=== PATIENT | female | born 1930 | race Caucasian/White ===

== ENCOUNTER 2018-05-13 23:18 | Inpatient (IN) | payer OTHER, MEDICARE ==
[~2018-05-13] VITALS: Ht 167.6 cm; Wt 99.5 kg
[~2018-05-13 23:18] MED LIST: ALLOPURINOL100 MG PO; APAP PO; ASPIR 8181 MG PO; BUPROPION XL150 MG PO; DILTIAZEM HYDR180 M1 PO; FUROSEMIDE80 MG PO; GABAPENTIN600 MG PO; METAXALONE800 MG PO; OMEPRAZOLE20 MG PO; OXYCOD PO; POTASSIUM CHLO20 ME1 PO; SIMVASTATIN20 MG PO; SPIRIVA 18 MCG18 MCG INH; WARFARIN SODIUM6 MG PO
--- NOTE | 2018-05-14 00:23 | ED GENERAL ADULT ---
See Addendum History of Present Illness General Chief Complaint: Lower Extremity Problems Stated Complaint: BIBA ?CELLULITIS LLEXT Source: patient Exam Limitations: no limitations Vital Signs & Intake/Output Vital Signs & Intake/Output Vital Signs Date Time Temp Pulse Resp B/P B/P Pulse O2 O2 Flow FiO2 Mean Ox Delivery Rate 05/14 0144 99.3 103 18 121/60 100 Room Air 05/13 2355 Room Air 05/13 2329 99.7 93 18 156/72 94 Room Air Allergies Coded Allergies: MDX - Dabigatran (From PRADAXA) (UNKNOWN 08/02/13) MDX - Latex (LATEX) (IRVIN 11/29/12) Reconcile Medications Allopurinol 100 MG TAB 1 TAB PO DAILY GOUT (Reported) Aspirin (Ecotrin) 81 MG TABLET.DR 1 TAB PO DAILY HEART HEALTH (Reported) BUPROPION HCL (Bupropion XL) 150 MG TAB.ER.24H 150 MG PO DAILY DEPRESSION ( Reported) DILTIAZEM HCL (Diltiazem 24HR Cd) 180 MG CER 180 MG PO DAILY BLOOD PRESSURE ( Reported) Furosemide 80 MG TAB 80 MG PO DAILY CHF (Reported) Gabapentin 600 MG TABLET 600 MG PO DAILY PAIN (Reported) Metaxalone 800 MG TABLET 800 MG PO Q6 PRN PAIN (Reported) Omeprazole 20 MG CAPSULE.DR 20 MG PO DAILY GERD (Reported) [OXYCOD/APAP TAB 7.5] 1 TAB PO PRN PAIN (Reported) Potassium Chloride 20 MEQ TABLET.ER 20 MEQ PO DAILY LOW POTASSIUM (Reported) Simvastatin (Zocor) 20 MG TAB 1 TAB PO QPM CHOLESTEROL (Reported) Tiotropium [place] (Spiriva) 18 MCG CAP.W.DEV 1 CAP INH DAILY COPD (Reported) Warfarin Sodium 6 MG TABLET 6 MG PO DAILY AFIB (Reported) Triage Note: TRIAGE: BIBA FROM HOME REPORTING L LOWER EXT SWELLING. +SWELLING TO L FOOT, ANKLE AND CALF/ GAUTHIER. VERY HOT TO TOUCH, REDNESS NOTED, SKIN TIGHT. REPORTS "CAN'T EVEN WALK IT HURTS SO MUCH." DENIES INJURIES. Triage Nurses Notes Reviewed? yes Onset: Gradual Duration: day(s): Timing: constant HPI: 87-year-old female with a history of A. fib, CHF, hyperlipidemia, hypertension presenting with left foot/ankle pain/swelling since yesterday. Reports initially started in the foot and has since progressed to the ankle. Has tried ice and oxycodone without relief. Denies fevers, nausea, vomiting, CP, SOB. Patient is largely nonambulatory and wheelchair-bound, but she notes that she is able to stand and pivot using her walker to transfer from her wheelchair to the toilet. She has been unable to bear weight for transferring since the onset of the above symptoms. Of note she struck her left gauthier on her 's walker 3 days ago. (Alise Colunga) Past History Travel History Traveled to [place] past 21 day No Medical History Any Pertinent Medical History? see below for history Cardiovascular: AFIB, CHF, hypertension, hyperlipidemia Surgical History Surgical History: non-contributory Psychosocial History What is your primary language Latvian Tobacco Use: Never used Family History Hx Contributory? No (Alise Colunga) Review of Systems Review of Systems Constitutional: Reports: no symptoms. EENTM: Reports: no symptoms. Respiratory: Reports: no symptoms. Cardiovascular: Reports: no symptoms. GI: Reports: no symptoms. Genitourinary: Reports: no symptoms. Musculoskeletal: Reports: see HPI. Skin: Reports: see HPI. Neurological/Psychological: Reports: no symptoms. Hematologic/Endocrine: Reports: no symptoms. Immunologic/Allergic: Reports: no symptoms. All Other Systems: Reviewed and Negative (Alise Colunga) Physical Exam Physical Exam General Appearance: well developed/nourished, no apparent distress, alert, awake Comments: Gen.: Well-nourished, well-developed, no acute distress. Head: Normocephalic, atraumatic. Eyes: Normal inspection bilaterally Ears: Normal inspection bilaterally Nose: Normal inspection Neck: Normal inspection Lungs: clear to auscultation bilaterally, normnal breath sounds Heart: regular rate and rhythm Abdomen: soft and non-tender EXTREMITIES: left lower extremity Inspection: 2+ pitting edema and erythema to the foot and ankle Palpation: diffuse tenderness and increased warmth to the foot/ankle/distal leg, calf is supple but tender ROM: Patient is unable to range the ankle joint Sensation: intact Motor strength: Unable to assess motor strength Pulse: Dorsalis pedis and posterior tibialis pulses are both audible with Doppler Neurologic: alert and oriented x3 Skin: warm and dry Psychiatric: Normal mood and affect, no apparent delusions or hallucinations, behavior appropriate Core Measures ACS in differential dx? No CVA/TIA Diagnosis: No Sepsis Present: No Sepsis Focused Exam Completed? No (Alise Colunga) Progress Differential Diagnoses I considered the following diagnoses in my evaluation of the patient: [ Cellulitis versus abscess versus sepsis versus DVT] Plan of Care: Orders Procedure Date/time Status BLOOD CULTURE 05/14 7 Active LACTIC ACID 05/14 7 Complete D-DIMER 05/14 7 Complete COMPREHENSIVE METABOLIC PANEL 05/14 7 Complete CBC WITHOUT DIFFERENTIAL 05/14 7 Complete Current Medications Sig/Anuj Start time Last Medication Dose Stop Time Status Admin Vancomycin HCl 1,000 MG Q12 05/14 1230 UNir Sodium Chloride 250 ML (Normal Saline 0.9%) Allopurinol 100 MG DAILY 05/14 900 UNVr (Zyloprim) Atorvastatin Calcium 10 MG DAILY 05/14 900 UNVr (Lipitor) Bupropion HCl 150 MG DAILY 05/14 900 UNVr (Wellbutrin XL) Diltiazem HCl 180 MG DAILY 05/14 900 UNVr (Cardizem) Furosemide 80 MG DAILY 05/14 900 UNVr (Lasix) Gabapentin 600 MG DAILY 05/14 900 UNVr (Neurontin) Potassium Chloride 20 MEQ DAILY 05/14 900 UNVr (K-Dur) Tiotropium Cayuga 1 PUF DAILY 05/14 900 UNVr (Spiriva) Warfarin Sodium 6 MG DAILY 05/14 900 UNVr (Coumadin) Laboratory Tests 05/14/18 0018: Anion Gap 11, Estimated GFR > 60, BUN/Creatinine Ratio 31.4 H, Glucose 130 H, Lactic Acid 0.9, Calcium 9.2, Total Bilirubin 0.5, AST 18, ALT 18, Alkaline Phosphatase 83, Total Protein 6.7, Albumin 3.8, Globulin 2.9, Albumin/Globulin Ratio 1.3, D-Dimer High Sensitivty 310 H, CBC w Diff NO MAN DIFF REQ, RBC 4.68, MCV 89.6, MCH 30.0, MCHC 33.5, RDW 17.3 H, MPV 9.8, Gran % 80.2 H, Lymphocytes % 8.8 L, Monocytes % 9.7 H, Eosinophils % 1.0, Basophils % 0.3, Absolute Granulocytes 6.0, Absolute Lymphocytes 0.7 L, Absolute Monocytes 0.7 H, Absolute Eosinophils 0.1, Absolute Basophils 0 Microbiology 05/14 18 BLOOD: Blood Culture - RECD 05/14 17 BLOOD: Blood Culture - CAN Cancelled: QNS CALLED LILA 05/14 TO REDRAW.GH.. Tib/fib XR IMPRESSION: Status post total left knee arthroplasty without evidence of periprosthetic fracture. 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 Labs are unremarkable with normal white blood cell. Discussed with the hospitalist and patient does not meet admission criteria at this time as she is not showing any systemic symptoms and has normal labs. Will hold overnight in the emergency department for ultrasound in the morning to rule out DVT and case management consult to ensure safe discharge home. We will continue antibiotics scheduled in the meantime. Signed out to Dr. Scales. Initial ED EKG: none (Alise Colunga) Departure Departure Disposition: STILL A PATIENT Condition: Stable Clinical Impression Primary Impression: Cellulitis Referrals: Anthony CISNEROS,Iker Brand (PCP/Family) Departure Forms: Customer Survey General Discharge Information (Alise Colunga) PA/LYMPHEDEMA THERAPIST Co-Sign Statement Statement: ED Attending supervision documentation- [] I saw and evaluated the patient. I have also reviewed all the pertinent lab results and diagnostic results. I agree with the findings and the plan of care as documented in the PA's/LYMPHEDEMA THERAPIST's documentation. [x] I have reviewed the ED Record and agree with the PA's/LYMPHEDEMA THERAPIST's documentation. [] Additions or exceptions (if any) to the PAs/LYMPHEDEMA THERAPIST's note and plan are summarized below: [] (Yordy CISNEROS,Erik Murray) Critical Care Note Critical Care Note Critical Care Time: non-applicable (Alise Colunga)
[2018-05-14 00:58] LABS: ABSOLUTE BASOPHIL COUNT 0 /CUMM (0.0-0.2); ABSOLUTE EOSINOPHIL COUNT 0.1 /CUMM (0.0-0.7); ABSOLUTE LYMPH COUNT 0.7 /CUMM (1.2-3.4); ABSOLUTE MONOCYTE COUNT 0.7 /CUMM (0.10-0.60); BASOPHIL % 0.3 % (0.0-2.0); GRANULOCYTE % 80.2 % (42.2-75.2); HEMATOCRIT 41.9 % (37-47); MEAN CORPUSCULAR HGB CONC 33.5 G/DL (33.0-37.0); MEAN CORPUSCULAR VOLUME 89.6 FL (81.0-99.0); MEAN PLATELET VOLUME 9.8 FL (7.4-10.4); PLATELET COUNT 174 /CUMM (130-400); RBC DISTRIBUTION WIDTH 17.3 % (11.5-14.5); RED BLOOD CELL CT 4.68 /CUMM (4.20-5.40); WHITE BLOOD CELL COUNT 7.5 /CUMM (4.8-10.8)
--- NOTE | 2018-05-14 01:28 | RADIOLOGY REPORT ---
EXAMINATION: XR TIBIA AND FIBULA, LEFT CLINICAL INFORMATION: Concern for fracture. COMPARISON: Right knee radiographs 10/30/2014 TECHNIQUE: AP and lateral views of the left tibia and fibula were obtained. FINDINGS: Again seen are changes related to total left knee arthroplasty. Prosthetic components appear intact without evidence of malalignment. No evidence of acute fracture or traumatic dislocation. In the distal tibial shaft, there is a peripherally sclerotic, centrally mixed density lesion, with fairly circumscribed borders on the lateral view. Findings are thought to reflect sequela of bone infarct. Vascular calcifications are seen. Diffuse edema of the soft tissues of the lower leg are noted. There is diffuse osteopenia. IMPRESSION: Status post total left knee arthroplasty without evidence of periprosthetic fracture. 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
[2018-05-14] MEDS ORDERED: CLOTRIMAZOLE-BE15 GM TOP (08:14)
[2018-05-14] MEDS ORDERED: GABAPENTIN600 M1 PO (08:15)
[2018-05-14] MEDS ORDERED: ALIGN4 M1 PO (08:16)
[2018-05-14] MEDS ORDERED: SENNA8.6 M3 PO (08:17)
[2018-05-14] MEDS ORDERED: ISOSORBIDE MONO60 M1 PO (08:18)
[2018-05-14] MEDS ORDERED: MELATONIN5 M7 PO (08:18)
--- NOTE | 2018-05-14 10:03 | ULTRASOUND REPORT ---
EXAMINATION: LEFT LOWER EXTREMITY VENOUS DOPPLER ULTRASOUND CLINICAL INFORMATION: Left leg pain and swelling. VTE suspected. Rule out DVT. COMPARISON: None. TECHNIQUE: Doppler spectral analysis and color flow Doppler imaging was performed of the left lower extremity. Compression and augmentation maneuvers were performed. FINDINGS: The left common femoral vein, greater saphenous vein takeoff, femoral vein, and popliteal vein are normally compressible with normal augmentation responses and phasic changes seen with Doppler imaging. The midcalf posterior tibial veins are patent as well. The peroneal veins are not seen. There is a 1.9 x 0.4 x 1.1 cm popliteal cyst. IMPRESSION: 1. No evidence of deep venous thrombosis in the left lower extremity. However, the peroneal veins in the calf are not visualized. Depending on clinical circumstances, repeat DVT study in 7-10 days can be performed to exclude proximal clot propagation from a nonvisualized calf vein. 2. Small popliteal cyst.
--- NOTE | 2018-05-14 14:28 | Cons- Orthopedic ---
General Information and HPI Consulting Request Date of Consult: 05/14/18 Requested By: Kayli De La Cruz MD History of Present Illness: 87-year-old female with left lower extremity pain and swelling for the past 3 days. Patient is wheelchair-bound. She states left lower extremity hit her husbands walker 3 days ago. denies any falls out of chair or major trauma. patient is on coumadin for a fib. did not note any abrasions of left lower extremity. rates pain as a 10. x-rays taken of tib/fib and show no fracture/ dislocation. there is an incidental finding of a bone infarct. Allergies/Medications Allergies: Coded Allergies: dabigatran etexilate (From PRADAXA) (UNKNOWN 05/14/18) latex (IRVIN 05/14/18) Home Med List: Bifidobacterium Infantis (Align) 4 MG (1 BILLION CELL) CAPSULE 1 CAP PO DAILY GI (Reported) BUPROPION HCL (Bupropion XL) 150 MG TAB.ER.24H 150 MG PO DAILY DEPRESSION ( Reported) Clotrimazole/Betamethasone Dip (Clotrimazole-Betamethasone Crm) 1 %-0.05 % CREAM..G. 1 ESPERANZA TOP BID UNKNOWN (Reported) apply to affected area(s) DILTIAZEM HCL (Diltiazem 24HR Cd) 180 MG CER 180 MG PO DAILY BLOOD PRESSURE ( Reported) Furosemide 80 MG TAB 80 MG PO DAILY CHF (Reported) Gabapentin 600 MG TABLET 600 MG PO DAILY PAIN (Reported) Gabapentin 600 MG TABLET 2 TAB PO QPM PAIN (Reported) Isosorbide Mononitrate (Isosorbide Mononitrate ER) 60 MG TAB.ER.24H 1 TAB PO DAILY HEART (Reported) Melatonin 5 MG TABLET 1 TAB PO QPM SLEEP (Reported) Sennosides (Senna) 8.6 MG TABLET 1 TAB PO QPM GI (Reported) Simvastatin (Zocor) 20 MG TAB 1 TAB PO QPM CHOLESTEROL (Reported) Warfarin Sodium 6 MG TABLET 6 MG PO DAILY AFIB (Reported) Past History Medical History Blood Transfusion Hx: No Neurological: NONE EENT: hearing loss Cardiovascular: AFIB, CHF, hypertension, hyperlipidemia Respiratory: NONE Gastrointestinal: NONE Hepatic: NONE Renal: NONE Musculoskeletal: NONE Psychiatric: NONE Endocrine: NONE Blood Disorders: NONE Cancer(s): NONE ROOFING TECHNICIAN/Reproductive: NONE Surgical History Pertinent Surgical History: non-contributory Psychosocial History Where Do You Live? Home Services at Home: None Smoking Status: Former Smoker Review of Systems Review of Systems: negative Exam & Diagnostic Data Vital Signs and I&O Vital Signs Date Time Temp Pulse Resp B/P B/P Pulse O2 O2 Flow FiO2 Mean Ox Delivery Rate 05/14 1243 98.0 62 16 138/60 93 Room Air 05/14 1005 98.2 79 14 119/72 92 Room Air 05/14 0656 99.9 88 18 145/67 94 Room Air 05/14 0423 92 20 122/66 93 Room Air 05/14 0144 99.3 103 18 121/60 100 Room Air 05/13 2355 Room Air 05/13 2329 99.7 93 18 156/72 94 Room Air Intake & Output 05/14 1600 05/14 0800 05/14 0000 05/13 1600 05/13 0800 05/13 0000 Intake Total Output Total 100 Balance -100 Output, Urine 100 Patient 215 lb Weight Weight Reported by Patient Measurement Method Physical Exam: The left lower extremity is tender to touch. there is global erythema of left lower extremity. no obvious abrasions or skin breakdown. left lower extremity is n/v intact. she is able to move left ankle with rom 0-45 degrees. no significant motor weakness. the calf is supple and soft. x-rays negative for fracture or dislocation. there is an incidental finding of a bone infarct. patient is afebrile with a normal white count. Assessment/Plan Assessment/Plan left lower extremity contusion with hematoma d/t coumadin use -elevate left lower extremity -ice left lower extremity -f/u with orthopedics prn Consult Acknowledgment - Thank you for your consult request.
[2018-05-14 14:37] VITALS: BP 119/50
--- NOTE | 2018-05-14 14:58 | History & Physical ---
See Addendum General Information and HPI MD Statement: I have seen and personally examined ARSLAN LEONARD and documented this H&P. Source of Information: patient Exam Limitations: no limitations History of Present Illness: The patient is a 87 year old F with a PMH of CHF, AF, HL, HNT who presented to the ER with a stated chief complaint of swelling, warmth, and redness of the right LE that occurred over the weekend. She reports feeling some cramps in the top of the foot on Monday night then Monday the top of the foot and eventually the ankle began to swell and became very painful. She is wheelchair bound due to a fall and back injury 4 years ago, she transfers from the to the commode using a walker ortherwise does not use her legs for mobility. She denies any recent falls but does report striking her left gauthier against her husbands walker on night. It became swollen and tender but appears to be healing now. The patient denies fever/chills, chest pain, SOB, cough. Allergies/Medications Allergies: Coded Allergies: dabigatran etexilate (From PRADAXA) (UNKNOWN 05/14/18) latex (IRVIN 05/14/18) Home Med list Bifidobacterium Infantis (Align) 4 MG (1 BILLION CELL) CAPSULE 1 CAP PO DAILY GI (Reported) BUPROPION HCL (Bupropion XL) 150 MG TAB.ER.24H 150 MG PO DAILY DEPRESSION ( Reported) Clotrimazole/Betamethasone Dip (Clotrimazole-Betamethasone Crm) 1 %-0.05 % CREAM..G. 1 ESPERANZA TOP BID UNKNOWN (Reported) apply to affected area(s) DILTIAZEM HCL (Diltiazem 24HR Cd) 180 MG CER 180 MG PO DAILY BLOOD PRESSURE ( Reported) Furosemide 80 MG TAB 80 MG PO DAILY CHF (Reported) Gabapentin 600 MG TABLET 600 MG PO DAILY PAIN (Reported) Gabapentin 600 MG TABLET 2 TAB PO QPM PAIN (Reported) Isosorbide Mononitrate (Isosorbide Mononitrate ER) 60 MG TAB.ER.24H 1 TAB PO DAILY HEART (Reported) Melatonin 5 MG TABLET 1 TAB PO QPM SLEEP (Reported) Sennosides (Senna) 8.6 MG TABLET 1 TAB PO QPM GI (Reported) Simvastatin (Zocor) 20 MG TAB 1 TAB PO QPM CHOLESTEROL (Reported) Warfarin Sodium 6 MG TABLET 6 MG PO DAILY AFIB (Reported) Compliance With Home Meds: GOOD Past History Travel History Traveled to [place] past 21 day No Medical History Neurological: CVA, seizure Cardiovascular: AFIB, CHF, hypertension, hyperlipidemia, myocardial infarction Respiratory: COPD Musculoskeletal: falls, chronic right leg/hip pain Isolation History: Standard Surgical History Surgical History: non-contributory Past Family/Social History Functional Ability ADLs Needs Assist: dressing, toileting, bathing. Ambulation: non-ambulatory IADLs Independent: finances, food prep, telephone, medication admin. Unknown: shopping, housework, transportation. Review of Systems Review of Systems Constitutional: Reports: see HPI. Cardiovascular: Reports: no symptoms. Respiratory: Reports: no symptoms. GI: Reports: no symptoms. Genitourinary: Reports: no symptoms. Musculoskeletal: Reports: see HPI, back pain. Neurological/Psychological: Reports: no symptoms. Hematologic/Endocrine: Reports: no symptoms. Immunologic/Allergic: Reports: no symptoms. All Other Systems: Reviewed and Negative Exam & Diagnostic Data Last 24 Hrs of Vital Signs/I&O Vital Signs Date Time Temp Pulse Resp B/P B/P Pulse O2 O2 Flow FiO2 Mean Ox Delivery Rate 05/14 1437 119/50 05/14 1243 98.0 62 16 138/60 93 Room Air 05/14 1005 98.2 79 14 119/72 92 Room Air 05/14 0656 99.9 88 18 145/67 94 Room Air 05/14 0423 92 20 122/66 93 Room Air 05/14 0144 99.3 103 18 121/60 100 Room Air 05/13 2355 Room Air 05/13 2329 99.7 93 18 156/72 94 Room Air Intake & Output 05/14 1600 05/14 0800 05/14 0000 Intake Total 350 Output Total 100 Balance 250 Intake, Oral 350 Output, Urine 100 Patient 97.522 kg Weight Weight Reported by Patient Measurement Method Physical Exam General Appearance Alert, Oriented X3, Cooperative, Mild Distress Skin No Rashes, LLE erythema and warmth Skin Temp/Moisture Exam: Warm/Dry HEENT Atraumatic Cardiovascular Regular Rate, No Murmurs Lungs Normal Air Movement, expiratory wheeze Abdomen Normal Bowel Sounds, Soft, No Tenderness Neurological Normal Speech, Normal Tone, Sensation Intact Extremities tenderness, swelling, +3 edema LLE Last 24 Hrs of Labs/Krystian: Laboratory Tests 05/14/18 1435: PT Pending, INR Pending 05/14/18 0307: Lactic Acid Cancelled 05/14/18 0018: Anion Gap 11, Estimated GFR > 60, BUN/Creatinine Ratio 31.4 H, Glucose 130 H, Lactic Acid 0.9, Calcium 9.2, Total Bilirubin 0.5, AST 18, ALT 18, Alkaline Phosphatase 83, Total Protein 6.7, Albumin 3.8, Globulin 2.9, Albumin/Globulin Ratio 1.3, D-Dimer High Sensitivty 310 H, CBC w Diff NO MAN DIFF REQ, RBC 4.68, MCV 89.6, MCH 30.0, MCHC 33.5, RDW 17.3 H, MPV 9.8, Gran % 80.2 H, Lymphocytes % 8.8 L, Monocytes % 9.7 H, Eosinophils % 1.0, Basophils % 0.3, Absolute Granulocytes 6.0, Absolute Lymphocytes 0.7 L, Absolute Monocytes 0.7 H, Absolute Eosinophils 0.1, Absolute Basophils 0 Microbiology 05/14 1300 URINE ROUT: Urine Culture - ORD 05/14 18 BLOOD: Blood Culture - RECD 05/14 17 BLOOD: Blood Culture - CAN Cancelled: QNS CALLED LILA 0050 05/14 TO REDRAW.GH.. Assessment/Plan Assessment: 87 year old F with a PMH of CHF, AF, HL, HNT who presented to the ER with a chief complaint of swelling, warmth, and redness of the right LE that started Monday night and worsened over the weekend. She denied any falls or traumatic injury to the extremity. She did report striking her left gauthier against her husbands walker on night resulting in a mild contusion. She is wheelchair bound due to a fall and back injury 4 years ago. Problem List: 1. Cellulitis: No leukocytosis, 1G vancomycin given in ER, US ruled out DVT of LLE, tib/fib XR showed possible infarct involving distal tibal shaft - blood culture results pending - D/C vancomycin, started ceflazolin IVPB 1 G Q8H - MRI w/wo contrast of left extremity pending 2. A-fib/CHF/HTN - Continue diltiazem 180mg PO daily - Continue coumadin pending MRI and INR results - Continue Isosorbide 60mg PO daily - Continue Lasix 80mg PO daily - Conintue 20mEq PO potassium daily 3. Hyperlipemia - Continue Atorvastatin 10mg PO daily 4. Chronic Back and RLE Pain - Continue home pain regimen, 7.5mg oxycodone TID PRN 5. Mobility impaired - PT eval and treat - maintain fall risk and assist with transfers 6. DVT prophylaxis - Continue coumadin 7. Nurtition - Heart health diet 9. Code Status - DNR/DNI As Ranked By This Provider Problem List: 1. Cellulitis 2. A-fib 3. CHF (congestive heart failure) 4. Hypertension 5. Hyperlipemia 6. Mobility impaired Core Measures/Misc (05/07) Acute Coronary Syndrome ACS Diagnosis: No Congestive Heart Failure Congestive Heart Failure Diagnosis No Cerebrovascular Accident CVA/TIA Diagnosis: No VTE (View Protocol) VTE Risk Factors Immobility No Mechanical VTE Prophylaxis d/t Other (coumadin) No VTE Pharm Prophylaxis d/t NA PharmProphylax ordered Sepsis (View protocol) Sepsis Present: No If YES complete Sepsis Event Note If YES complete Sepsis Event Note Resident Review Statement Resident Statement: examined this patient, reviewed EMR data (avail), discussed with nursing
[2018-05-14 17:11] LABS: PT 25.7 SEC (9.4-12.5)
[2018-05-14 21:08] VITALS: BP 132/59
[2018-05-15 06:58] VITALS: BP 128/65
[2018-05-15 08:15] LABS: PT 26.5 SEC (9.4-12.5)
[2018-05-15 08:25] LABS: ABSOLUTE BASOPHIL COUNT 0 /CUMM (0.0-0.2); ABSOLUTE EOSINOPHIL COUNT 0 /CUMM (0.0-0.7); ABSOLUTE GRANULOCYTE CT 4.2 /CUMM (1.4-6.5); ABSOLUTE LYMPH COUNT 0.8 /CUMM (1.2-3.4); ABSOLUTE MONOCYTE COUNT 0.7 /CUMM (0.10-0.60); BASOPHIL % 0.3 % (0.0-2.0); EOSINOPHIL % 0.6 % (0-5); GRANULOCYTE % 72.9 % (42.2-75.2); MEAN CORPUSCULAR HGB 29.7 PG (27.0-31.0); MEAN CORPUSCULAR HGB CONC 33.4 G/DL (33.0-37.0); MEAN CORPUSCULAR VOLUME 88.9 FL (81.0-99.0); MEAN PLATELET VOLUME 9.6 FL (7.4-10.4); PLATELET COUNT 160 /CUMM (130-400); RBC DISTRIBUTION WIDTH 17.2 % (11.5-14.5); RED BLOOD CELL CT 4.61 /CUMM (4.20-5.40); WHITE BLOOD CELL COUNT 5.8 /CUMM (4.8-10.8)
--- NOTE | 2018-05-15 08:39 | PN- Gen Med ---
See Addendum Assessment/Plan Medical Assessment: Impression 87 year old F with a PMH of CHF, AF, HL, HTN who presented to the ER with a chief complaint of swelling, warmth, and redness of the left LE that started Yohannes night and worsened over the weekend. She denied any falls or traumatic injury to the extremity. She is wheelchair bound due to a fall and back injury 4 years ago and reports using her right leg primarily for weight bearing during transfers from her . 1. Cellulitis of LLE: Swelling and erythema of left foot and calf are mildly improved, no leukocytosis or F/C, BCx remain NGTD, we will continue IV antibiotics - continue ceflazolin IVPB 1 G Q8H - Blood Cx NGTD 2. Tendonitis: MRI w/wo contrast of left extremity showed a split tendon tear around the ankle and tenosynovitis, this may be due to overuse injury causing the signs and symptoms the patient is exhibiting; US ruled out DVT of LLE, tib/ fib XR showed incidental finding of infarct involving distal tibal shaft - apply ice and elevate - Continue 7.5 mg oxycodone PO TID PRN - Started tylenol 650mg PO Q6H - orthopedics consulted, appreciate management recommendations 2. A-fib/CHF/HTN: Controlled on current medication regimen - Continue diltiazem 180mg PO daily - Continue coumadin 6mg PO daily - Monitor INR daily, goal level 2-3, adjust coumadin dose as needed - Continue Isosorbide 60mg PO daily - Continue Lasix 80mg PO daily - Conintue 20mEq PO potassium daily 3. Hyperlipemia - Continue Atorvastatin 10mg PO daily 4. Chronic Back and LLE Pain: we are adding tylenol today to improve control of pain - Continue home pain regimen, 7.5mg oxycodone TID PRN - Start tylenol 650mg PO Q6H 5. Mobility impaired - PT eval and treat - maintain fall risk and assist with transfers 6. DVT prophylaxis - Continue coumadin 7. Nurtition - Heart healthy diet 9. Code Status - DNR/DNI Problem List: 1. Cellulitis 2. Tendonitis of ankle, left 3. Mobility impaired 4. CHF (congestive heart failure) 5. A-fib 6. Hyperlipemia 7. Hypertension DVT/Prophylaxis: pharmacological Consulting Request: Consulting Specialty: Orthopedics Consulting Physician: Dr. Zuniga Reason for Consult: recommendations for management of tendo tear Subjective Follow-up For: Left LE cellulitis and tendonitis Subjective: The patient was seen and examined this morning. She complained of continued high level of pain and swelling of her left lower extremity. 7.5mg oxycodone TID PRN is helping to control the pain per patient. She also reports no BM for a couple of days for which she is on a bowel regimen. She denies F/C, SOB, cough, chest pain. She will work with PT/OT in bed today as she is currently non-weight bearing. Review of Systems Constitutional: Reports: see HPI. EENTM: Reports: no symptoms. Cardiovascular: Reports: no symptoms. Respiratory: Reports: no symptoms. Gastrointestinal: Reports: constipation. Genitourinary: Reports: no symptoms. Musculoskeletal: Reports: see HPI, joint pain, joint swelling. Skin: Reports: no symptoms. Neurological/Psychological: Reports: no symptoms. Objective Last 24 Hrs of Vital Signs/I&O Vital Signs Date Time Temp Pulse Resp B/P B/P Pulse O2 O2 Flow FiO2 Mean Ox Delivery Rate 05/15 0827 132/59 05/15 0658 98.4 86 18 128/65 93 05/14 2108 98.4 76 18 132/59 94 Room Air 05/14 1600 Room Air 05/14 1503 62 119/50 05/14 1437 119/50 05/14 1243 98.0 62 16 138/60 93 Room Air 05/14 1005 98.2 79 14 119/72 92 Room Air Intake & Output 05/15 1600 05/15 0800 05/15 0000 Intake Total 480 600 Output Total 200 500 Balance 280 100 Intake, Oral 480 600 Output, Urine 200 500 Patient 99.11 kg Weight Physical Exam General Appearance: Alert, Oriented X3, Cooperative, No Acute Distress Skin: No Rashes, No Breakdown Skin Temp/Moisture Exam: Warm/Dry HEENT: Atraumatic, PERRLA Cardiovascular: Regular Rate Lungs: Clear to Auscultation, Normal Air Movement Abdomen: Normal Bowel Sounds, Soft, No Tenderness Neurological: Normal Speech, Normal Tone, Sensation Intact Extremities: +2-3 pitting edema LLE improved since yesterday Current Medications: Current Medications Sig/Anuj Start time Last Medication Dose Route Stop Time Status Admin Allopurinol 100 MG DAILY 05/14 0900 DC 05/14 PO 1005 Atorvastatin Calcium 10 MG DAILY 05/14 09 AC 05/15 PO 0826 Bupropion HCl 150 MG DAILY 05/14 09 AC 05/15 PO 0826 Cefazolin Sodium 1,000 MG IQ8 05/14 1600 AC 05/15 IV 0805 Diltiazem HCl 180 MG DAILY 05/15 09 AC 05/15 PO 0827 Diltiazem HCl 180 MG DAILY 05/14 09 DC 05/14 PO 1005 Furosemide 80 MG DAILY 05/14 09 AC 05/15 PO 0826 Gabapentin 1,200 MG AT BEDTIME 05/14 2100 AC 05/14 PO 203 Gabapentin 600 MG DAILY 05/14 09 AC 05/15 PO 0826 Influenza Virus 0.5 ML ONCE ONE 05/14 1545 DC 05/14 Vaccine IM 05/14 1546 1645 Isosorbide 60 MG DAILY 05/14 1500 AC 05/15 Mononitrate PO 0827 Melatonin 5 MG QPM 05/14 2100 AC 05/14 PO 203 Oxycodone HCl 7.5 MG TIDPRN PRN 05/14 1700 AC 05/15 PO 0002 Oxycodone HCl 0 .STK-MED ONE 05/14 1231 DC PO Oxycodone HCl 7.5 MG ONCE ONE 05/14 1215 DC 05/14 PO 05/14 1216 1230 Polyethylene Glycol 17 GM DAILY NEEDED PRN 05/15 0830 UNVr PO Potassium Chloride 20 MEQ DAILY 05/14 09 AC 05/15 PO 0828 Senna 187 MG BID PRN 05/15 0830 UNVr PO Senna 187 MG AT BEDTIME 05/14 2100 AC 05/14 PO 204 Tiotropium Melvin 1 PUF DAILY 05/14 0900 DC 05/14 INH 1005 Vancomycin HCl 1,500 MG Q24H 05/15 0000 CAN Sodium Chloride 250 ML IV Warfarin Sodium 6 MG QPM 05/14 2100 AC 05/14 PO 203 Warfarin Sodium 6 MG 1700 05/14 1700 DC PO 05/14 1701 Warfarin Sodium 6 MG 1700 05/14 1700 CAN PO 05/14 1701 Last 24 Hrs of Labs/Mics: Laboratory Tests 05/15 05/14 0700 1450 Chemistry Sodium (137 - 145 mmol/L) 139 Potassium (3.5 - 5.1 mmol/L) 4.0 Chloride (98 - 107 mmol/L) 101 Carbon Dioxide (22 - 30 mmol/L) 28 Anion Gap (5 - 16) 10 BUN (7 - 17 mg/dL) 16 Creatinine (0.5 - 1.0 mg/dL) 0.7 Estimated GFR (>60 ml/min) > 60 BUN/Creatinine Ratio (7 - 25 %) 22.9 Coagulation PT (9.4 - 12.5 SEC) 26.5 H INR (0.90 - 1.19) 2.41 H Hematology CBC w Diff NO MAN DIFF REQ WBC (4.8 - 10.8 /CUMM) 5.8 RBC (4.20 - 5.40 /CUMM) 4.61 Hgb (12.0 - 16.0 G/DL) 13.7 Hct (37 - 47 %) 41.0 MCV (81.0 - 99.0 FL) 88.9 MCH (27.0 - 31.0 PG) 29.7 MCHC (33.0 - 37.0 G/DL) 33.4 RDW (11.5 - 14.5 %) 17.2 H Plt Count (130 - 400 /CUMM) 160 MPV (7.4 - 10.4 FL) 9.6 Gran % (42.2 - 75.2 %) 72.9 Lymphocytes % (20.5 - 51.1 %) 13.9 L Monocytes % (1.7 - 9.3 %) 12.3 H Eosinophils % (0 - 5 %) 0.6 Basophils % (0.0 - 2.0 %) 0.3 Absolute Granulocytes (1.4 - 6.5 /CUMM) 4.2 Absolute Lymphocytes (1.2 - 3.4 /CUMM) 0.8 L Absolute Monocytes (0.10 - 0.60 /CUMM) 0.7 H Absolute Eosinophils (0.0 - 0.7 /CUMM) 0 Absolute Basophils (0.0 - 0.2 /CUMM) 0 Urines Urine Color (YEL,AMB,STR) YEL Urine Clarity (CLEAR) HAZY H Urine pH (5.0 - 8.0) 6.0 Ur Specific [employer] (1.001 - 1.035) 1.015 Urine Protein (NEG,<30 MG/DL) NEG Urine Ketones (NEG) NEG Urine Nitrite (NEG) NEG Urine Bilirubin (NEG) NEG Urine Urobilinogen (0.1 - 1.0 EU/dl) 0.2 Ur Leukocyte Esterase (NEG) LARGE H Ur Microscopic SEDIMENT EXAMINED Urine RBC (0 - 5 /HPF) 5-10 H Urine WBC (0 - 2 /HPF) > 75 H Ur Epithelial Cells (NONE,FEW) MANY H Urine Hemoglobin (NEG) TRACE-INTACT Urine Glucose (N MG/DL) NEG 05/14 1435 Coagulation PT (9.4 - 12.5 SEC) 25.7 H INR (0.90 - 1.19) 2.34 H
--- NOTE | 2018-05-15 08:43 | MRI REPORT ---
EXAMINATION: MR ANKLE WITHOUT CONTRAST, LEFT CLINICAL INFORMATION: Osteonecrosis. COMPARISON: X-ray 05/14/2018. TECHNIQUE: Multiplanar MR imaging was performed through the right ankle on a high-field scanner without intravenous contrast. FINDINGS: Patient is positioned with flexion at the ankle, motion artifact, limiting evaluation. BONE/JOINTS: As seen on the recent x-ray, there is a lesion in the distal tibial metadiaphysis medullary cavity. The lesion has serpiginous well-defined margins, with internal heterogeneous T2 signal with mixed areas of bright and low signal, heterogeneous signal on T1. No edema in the adjacent marrow. Imaging findings are nonspecific, primary differential consideration is for an area of bone infarction. Osteochondral lesion/OCD subchondral T2 signal in the medial talar dome measuring 0.5 cm transverse by 0.8 cm AP, with overlying cartilage thinning. There is mild degenerative changes in the midfoot. No acute fractures seen. MUSCLES/TENDONS: Mild peroneus brevis tendinosis, with fraying and suggestion of a longitudinal split tear as it extends posterior and distal to the malleolus. There is tenosynovitis present. Tenosynovitis of the peroneus longus. Medial flexor tendons intact. Extensor tendons intact. LIGAMENTS: Evaluation is limited due to flexion of the ankle. Tibiofibular ligaments are grossly intact. The talofibular ligaments are not well seen and evaluated. There may be chronic sprain of the deltoid ligament, evaluation limited. ACHILLES TENDON: Intact. PLANTAR FASCIA: Limited evaluation, grossly intact on the sagittal sequences. SINUS TARSI: Nonspecific edema present. MISCELLANEOUS: There is a soft tissue swelling and extensive subcutaneous/soft tissue edema. IMPRESSION: 1. Lesion in the distal tibial metadiaphysis, has nonaggressive features on MRI, with immediate serpiginous well-defined margins as detailed above. Primary differential consideration is for an area of bone infarction. 2. Osteochondral lesion/OCD in the medial talar dome measuring 0.5 x 0.8 cm. 3. Mild degenerative changes in the midfoot. 4. Peroneus brevis tenosynovitis, tendinosis with fraying and probable component of longitudinal split tear of the tendon as it extends posterior and distal to the malleolus. 5. Tenosynovitis of the peroneus longus. 6. Diffuse soft tissue swelling and extensive subcutaneous/soft tissue edema.
[2018-05-15 14:25] VITALS: BP 110/62
--- NOTE | 2018-05-15 16:13 | PN- Orthopedic ---
Surgical Brief Attending Note Brief Attending Note: I was asked to reevaluate this patient following an MRI that was done of her left lower extremity. Patient stated there was no major trauma and no previous history of similar problem. Patient is on anticoagulation and antibiotic. Patient was found to be in bed and fairly comfortable at rest. Tenderness along the anterolateral aspect of the left ankle. There is warmth to touch. Mild erythema. No fluctuant areas. Calf was soft and nontender. Ranging the ankle did not aggravate symptoms except at the extremes of dorsiflexion. No evidence of definite external trauma but patient has findings consistent with significant venous stasis disease. I did review the MRI as well as plain x-rays. The plain x-rays revealed a total knee arthroplasty on the left. There did appear to be a benign bone infarct along the distal tibia. No evidence of fracture. The MRI revealed findings consistent with a bone infarct as well as a medial talar dome osteochondral defect. There is also peroneal tendon abnormalities. No evidence of acute bony trauma. There was some diffuse soft tissue swelling After examining the patient and reviewing the studies, appears the patient does have some swelling and cellulitic changes. I do think she would benefit from a cast boot to immobilize the ankle for comfort and to alleviate some of the inflammatory changes. Ice and elevation were recommended. Weightbearing can be as tolerated. And anti-inflammatory can be added to her regimen if not medically contraindicated. This was communicated to the nurse today as well as her primary hospitalist Dr De La Cruz. I also contacted the surgical PA for the orders
[2018-05-15 21:41] VITALS: BP 126/60
[2018-05-16 06:34] VITALS: BP 120/62
--- NOTE | 2018-05-16 07:40 | PN- Gen Med ---
See Addendum Assessment/Plan Medical Assessment: Impression 87 year old F with a PMH of CHF, AF, HL, HTN who presented to the ER with a chief complaint of swelling, warmth, and redness of the left LE that started Yohannes night and worsened over the weekend. She denied any falls or traumatic injury to the extremity. She is wheelchair bound due to a fall and back injury 4 years ago and reports using her left leg primarily for weight bearing during transfers from her . This is HD2, there has been overall improvement of the presenting symptoms. We will continue IV antibiotics, and supportive care for the tendonitis. A boot was ordered for support and stability of the left foot and ankle by orthopedics. PT will provide education on its use today. If Lorraine shows continued improvement we will discharge her tomorrow to [facility]. Lorraine and her family are agreeable to this plan. 1. Cellulitis of LLE: Swelling, warmth and erythema of left foot and calf continue to improve, BCx remain NGTD, we will continue IV antibiotics inpatient and transition to PO Abx at discharge - continue ceflazolin IVPB 1 G Q8H - Blood Cx NGTD 2. LLE Tendonitis: MRI w/wo contrast of left extremity showed a split tendon tear at the left ankle and tenosynovitis, this may be due to overuse injury causing the signs and symptoms the patient is exhibiting; US ruled out DVT of LLE, tib/fib XR showed incidental finding of infarct involving distal tibal shaft as did the MR - apply ice and elevate - weight bearing as tolerated using boot for stability x 4 weeks - Continue 7.5 mg oxycodone PO TID PRN - Continue tylenol 650mg PO Q6H - Continue Naproxen 250 mg PO BID, and omeprazole 40mg daily - orthopedics consulted, appreciate management recommendations - Daily PT/OT 3. A-fib/CHF/HTN: Controlled on current medication regimen - Continue diltiazem 180mg PO daily - Continue coumadin 6mg PO daily - Monitor INR daily, maintain therapeutic target level 2-3, adjust coumadin dose as needed - Continue Isosorbide 60mg PO daily - Continue Lasix 80mg PO daily - Conintue 20mEq PO potassium daily 4. Hyperlipemia - Continue Atorvastatin 10mg PO daily 5. Chronic Back and acute LLE Pain: in addition to tylenol we added naproxen to help reduce inflammation - Continue home pain regimen, 7.5mg oxycodone TID PRN - Tylenol 650mg PO Q6H - Naproxen 250mg PO BID 6. Mobility impaired - PT/OT eval and treat - maintain fall risk and assist with transfers 7. Constipation - continue bowel regimen scheduled and PRN 8. DVT prophylaxis - Continue coumadin 9. Nurtition - Heart healthy diet 10. Code Status - DNR/DNI Problem List: 1. Cellulitis 2. Tendonitis of ankle, left 3. Mobility impaired 4. CHF (congestive heart failure) 5. A-fib 6. Hyperlipemia 7. Hypertension DVT/Prophylaxis: pharmacological Consulting Request: Consulting Specialty: Orthopedics Consulting Physician: Dr. Zuniga Reason for Consult: recommendations for management of tendo tear Discharge Plan Discharge Disposition: Discharge to [facility] tomorrow Subjective Follow-up For: Cellulitis and tendonitis Subjective: Interval History Patient was seen and examined this morning. She reported feeling better today with no pain to the LLE overnight. She did feel a low level of pain this morning with movement. Lorraine continues to be constipated despite increase in stool softeners; will try ducolax suppository and MOM today. She denies F/C, SOB, abdominal pain, N/V/D. PO intake is good. A boot was ordered for her by orthopedics and is bedside; PT/OT will educate her on its use. Review of Systems Constitutional: Reports: see HPI. Comments: ROS negative except as noted in the Interval History Objective Last 24 Hrs of Vital Signs/I&O Vital Signs Date Time Temp Pulse Resp B/P B/P Pulse O2 O2 Flow FiO2 Mean Ox Delivery Rate 05/16 0634 97.8 70 18 120/62 91 05/15 2141 98.2 88 18 126/60 95 Room Air 05/15 1600 Room Air 05/15 1532 Room Air 05/15 1425 98.9 64 18 110/62 91 Room Air 05/15 0827 132/59 Intake & Output 05/16 0800 05/16 0000 05/15 1600 Intake Total 130 150 120 Output Total 300 550 Balance 130 -150 -430 Intake, IV 10 30 Intake, Oral 120 120 120 Output, Urine 300 550 Patient 102.965 kg Weight Physical Exam General Appearance: Alert, Oriented X3, Cooperative, No Acute Distress Skin: No Rashes, No Breakdown Skin Temp/Moisture Exam: Warm/Dry HEENT: Atraumatic, PERRLA, Mucous Membr. moist/pink Cardiovascular: Regular Rate, Normal S1, Normal S2 Lungs: Clear to Auscultation Abdomen: Normal Bowel Sounds, Soft, No Tenderness Neurological: Normal Speech, Normal Tone, Sensation Intact Current Medications: Current Medications Sig/Anuj Start time Last Medication Dose Route Stop Time Status Admin Acetaminophen 650 MG Q6 05/15 1200 AC 05/16 PO 0537 Atorvastatin Calcium 10 MG DAILY 05/14 09 AC 05/16 PO 0828 Bisacodyl 10 MG ONCE ONE 05/16 09 UNVr OR 05/16 09 Bupropion HCl 150 MG DAILY 05/14 09 AC 05/16 PO 0827 Cefazolin Sodium 1,000 MG IQ8 05/14 1600 AC 05/16 IV 0827 Diltiazem HCl 180 MG DAILY 05/15 09 AC 05/16 PO 0827 Furosemide 80 MG DAILY 05/14 09 AC 05/16 PO 0828 Gabapentin 1,200 MG AT BEDTIME 05/14 2100 AC 05/15 PO 223 Gabapentin 600 MG DAILY 05/14 0900 AC 05/16 PO 0827 Isosorbide 60 MG DAILY 05/14 1500 AC 05/16 Mononitrate PO 0827 Magnesium Hydroxide 30 ML QAM PRN 05/16 0915 PO Melatonin 5 MG QPM 05/14 2100 AC 05/15 PO 223 Naproxen 250 MG BID 05/15 2100 AC 05/16 PO 0828 Omeprazole 40 MG DAILY AC 05/15 1530 AC 05/16 PO 0537 Oxycodone HCl 7.5 MG TIDPRN PRN 05/14 1700 AC 05/15 PO 1612 Polyethylene Glycol 17 GM DAILY NEEDED PRN 05/15 0830 AC 05/15 PO 1158 Potassium Chloride 20 MEQ DAILY 05/14 09 AC 05/16 PO 0828 Senna 187 MG BID PRN 05/15 830 AC 05/15 PO 1159 Senna 187 MG AT BEDTIME 05/14 2100 AC 05/15 PO 223 Warfarin Sodium 6 MG QPM 05/14 2100 AC 05/15 PO 223 Last 24 Hrs of Labs/Mics: Laboratory Tests 05/16/18 0640: PT 24.6 H, INR 2.24 H, CBC w Diff NO MAN DIFF REQ, RBC 4.17 L, MCV 88.9, MCH 30.2, MCHC 34.0, RDW 17.5 H, MPV 9.5, Gran % 63.3, Lymphocytes % 19.6 L, Monocytes % 11.2 H, Eosinophils % 5.3 H, Basophils % 0.6, Absolute Granulocytes 2.5, Absolute Lymphocytes 0.8 L, Absolute Monocytes 0.4, Absolute Eosinophils 0.2, Absolute Basophils 0
[2018-05-16 08:00] LABS: ABSOLUTE BASOPHIL COUNT 0 /CUMM (0.0-0.2); ABSOLUTE EOSINOPHIL COUNT 0.2 /CUMM (0.0-0.7); ABSOLUTE GRANULOCYTE CT 2.5 /CUMM (1.4-6.5); ABSOLUTE LYMPH COUNT 0.8 /CUMM (1.2-3.4); ABSOLUTE MONOCYTE COUNT 0.4 /CUMM (0.10-0.60); BASOPHIL % 0.6 % (0.0-2.0); EOSINOPHIL % 5.3 % (0-5); GRANULOCYTE % 63.3 % (42.2-75.2); HEMATOCRIT 37.1 % (37-47); MEAN CORPUSCULAR HGB 30.2 PG (27.0-31.0); MEAN CORPUSCULAR VOLUME 88.9 FL (81.0-99.0); MEAN PLATELET VOLUME 9.5 FL (7.4-10.4); PLATELET COUNT 152 /CUMM (130-400); RBC DISTRIBUTION WIDTH 17.5 % (11.5-14.5); RED BLOOD CELL CT 4.17 /CUMM (4.20-5.40); WHITE BLOOD CELL COUNT 3.9 /CUMM (4.8-10.8)
[2018-05-16 08:40] LABS: PT 24.6 SEC (9.4-12.5)
--- NOTE | 2018-05-16 09:59 | Discharge Summary ---
See Addendum Visit Information Visit Dates Admission Date: 05/14/18 Discharge Date: 05/17/18 Hospital Course Course Attending Physician: Kayli De La Cruz MD Primary Care Physician: Iker Cruz MD Consulting Request: Consulting Specialty: Orthopedics Consulting Physician: Dr. Vigil Reason for Consult: recommendations for management of tendon tear Hospital Course: The patient is an 87 year old female with a significant PMH of CHF, Afib, HL, HTN, and an intracranial bleed resulting in resdiual right sided weakness who presented to the [facility] ER on 05/14/2017 with a chief complaint of increasing edema, erythema, and warmth of the left LE that initially developed Monday night and worsened over the weekend. The patient denied any falls or traumatic injury to the extremity. She is reportedly wheelchair bound due to a fall and subsequent back injury ~4 years ago which resulted in residual right sided weakness. She reports primarily utilizing her LLE for weight bearing during transfers from her . Upon admission, the patient was placed on a regimen of IV Cefazolin for management of a LLE cellulits. LLE US was negative for DVT. An MRI of the LLE was also performed which demonstrated evidence of peroneus brevis tenosynovitis and probable longitudinal tear and tenosynovitis of the peroneus longus. MRI also showed an incidential finding of a localized bone infarct. As a result, an orthopedic consult was requested. Per orthopedic recommendations the patient received supportive care while hospitalized with the application of ice, elevation of the LLE, initiation of a Naproxen regimen, participation in PT/OT, and the application of a Podus boot to the LLE with ambulation for stabilization. While hospitalized the patient remained compliant with her outpatient regimen of Coumadin 6 mg PO QPM necessary for management of her existing Afib. The patient 's INR remained therapeutic throughout her hospitalization. Following 4 days of inpatient hospitalization it was determined that the patient would be stable for DC to [facility] for continued PT. It is necessary for her to have an INR checked at the [facility] facility on Mondays and her Coumadin dose adjusted by the medical provider if indicated to ensure her INR remains within a therapeutic range of between 2.0 - 3.0. This patient has been discussed with Dr. De La Cruz who agrees with established discharge plan of care. Allergies: Coded Allergies: dabigatran etexilate (From PRADAXA) (UNKNOWN 05/14/18) latex (IRVIN 05/14/18) Disposition Summary Disposition Principal Diagnosis: LLE Cellulitis Additional Diagnosis: Tendonitis/Tendon tear Discharge Disposition: [facility] Discharge Instructions General Discharge Information Code Status: Do Not Resucitate/Intubat Patient's Diet: Heart Healthy Patient's Activity: As tolerated Follow-Up Instructions/Appts: Please follow up with your primary care physician, Dr Cruz, in 2 weeks Please follow up with the orthopedic physician, Dr Vigil, in 2 weeks Medications at Discharge Discharge Medications: Continue taking these medications: Simvastatin (Zocor) 20 MG TAB 1 Tablet ORAL Every night Gabapentin (Gabapentin) 600 MG TABLET 600 Milligram ORAL DAILY Qty = 270 BUPROPION HCL (Bupropion XL) 150 MG TAB.ER.24H 150 Milligram ORAL DAILY Qty = 90 Warfarin Sodium (Warfarin Sodium) 6 MG TABLET 6 Milligram ORAL DAILY Qty = 90 DILTIAZEM HCL (Diltiazem 24HR Cd) 180 MG CER 180 Milligram ORAL DAILY Qty = 90 Furosemide (Furosemide) 80 MG TAB 80 Milligram ORAL DAILY Qty = 135 Clotrimazole/Betamethasone Dip (Clotrimazole-Betamethasone Crm) 1 %-0.05 % CREAM..G. 1 Application On the skin TWICE DAILY Qty = 45 Instructions: apply to affected area(s) Gabapentin (Gabapentin) 600 MG TABLET 2 Tablet ORAL Every night Bifidobacterium Infantis (Align) 4 MG (1 BILLION CELL) CAPSULE 1 Capsule ORAL DAILY Sennosides (Senna) 8.6 MG TABLET 1 Tablet ORAL Every night Melatonin (Melatonin) 5 MG TABLET 1 Tablet ORAL Every night Isosorbide Mononitrate (Isosorbide Mononitrate ER) 60 MG TAB.ER.24H 1 Tablet ORAL DAILY Qty = 90 Oxycodone HCl (Oxaydo) 7.5 MG TABLET.ORL 1 Tablet ORAL THREE TIMES A DAY NEEDED as needed for PAIN SCALE 7-10 ( SEVERE) Start taking the following new medications: Cephalexin (Keflex) 500 MG CAPSULE 500 Milligram ORAL EVERY SIX HOURS Qty = 16 No Refills Naproxen (Naproxen) 250 MG TABLET 250 Milligram ORAL TWICE DAILY Qty = 10 No Refills Acetaminophen (Tylenol) 325 MG TABLET 650 Milligram ORAL EVERY SIX HOURS as needed for PAIN SCALE 4-6 (MODERATE) Qty = 30 No Refills Magnesium Hydroxide (Milk Of Magnesia) 400 MG/5 ML ORAL.SUSP 30 Milliliters ORAL Every Morning as needed for CONSTIPATION Qty = 150 No Refills Polyethylene Glycol 3350 (Miralax) 17 GRAM/DOSE POWDER 17 Gram ORAL DAILY NEEDED as needed for CONSTIPATION Qty = 4 No Refills Omeprazole (Omeprazole) 20 MG CAPSULE.DR 40 Milligram ORAL DAILY BEFORE BREAKFAST Qty = 14 No Refills Copies To: Yaritza CISNEROS,Donavon; Anthony CISNEROS,Iker Brand Attending MD Review Statement Documenting Attending: Jono CISNEROS,Kayli
[2018-05-16] MEDS ORDERED: NAPROXEN250 M1 PO (13:30)
[2018-05-16] MEDS ORDERED: MILK OF MA400 MG/52 PO (13:30)
[2018-05-16] MEDS ORDERED: TYLENOL325 M1 PO (13:30)
[2018-05-16] MEDS ORDERED: OMEPRAZOLE20 M2 PO (13:30)
[2018-05-16] MEDS ORDERED: MIRALAX119 GM PO (13:30)
[2018-05-16] MEDS ORDERED: OXAYDO7.5 MG PO (13:33)
[2018-05-16 14:14] VITALS: BP 106/60
[2018-05-16] MEDS ORDERED: KEFLEX500 M1 PO ×2 (15:38→15:49)
[2018-05-16 22:48] VITALS: BP 110/56
[2018-05-17 06:30] VITALS: BP 115/61
[2018-05-17 09:13] LABS: ABSOLUTE BASOPHIL COUNT 0 /CUMM (0.0-0.2); ABSOLUTE EOSINOPHIL COUNT 0.3 /CUMM (0.0-0.7); ABSOLUTE GRANULOCYTE CT 2.9 /CUMM (1.4-6.5); ABSOLUTE LYMPH COUNT 0.7 /CUMM (1.2-3.4); ABSOLUTE MONOCYTE COUNT 0.4 /CUMM (0.10-0.60); BASOPHIL % 0.6 % (0.0-2.0); EOSINOPHIL % 6.8 % (0-5); GRANULOCYTE % 67.1 % (42.2-75.2); HEMATOCRIT 39.5 % (37-47); MEAN CORPUSCULAR HGB 29.8 PG (27.0-31.0); MEAN CORPUSCULAR HGB CONC 33.5 G/DL (33.0-37.0); MEAN CORPUSCULAR VOLUME 88.8 FL (81.0-99.0); MEAN PLATELET VOLUME 9.8 FL (7.4-10.4); PLATELET COUNT 180 /CUMM (130-400); RBC DISTRIBUTION WIDTH 17.2 % (11.5-14.5); RED BLOOD CELL CT 4.45 /CUMM (4.20-5.40); WHITE BLOOD CELL COUNT 4.3 /CUMM (4.8-10.8)
[2018-05-17 09:19] LABS: PT 24.2 SEC (9.4-12.5)
--- NOTE | 2018-05-17 10:14 | PN- Gen Med ---
Derrick Castro 05/17/18 1013: Assessment/Plan Medical Assessment: Patient is an 87-year-old female with a significant PMH of chronic Afib, congestive heart failure, hypertension, a history of intracranial bleed with residual right-sided weakness and chronic right sided pain who was admitted on 05/14/2018 for evaluation and management of a left lower extremity cellulitis and Peroneus brevis tenosynovitis/tendonitis of the left ankle. Problem List: 1. Cellulitis 2. Tendonitis of ankle, left 3. Mobility impaired 4. A-fib Plan: 1. Cellulitis of lateral aspect of left ankle/dorsum of left foot: - Lateral left lower extremity leg/ankle and dorsal foot erythema appears much improved following adherence to IV Cefazolin regimen. - Transition patient to a PO regimen of Keflex upon DC. 2. Tendonitis of left ankle with mobility impairment: - Appreciate Ortho/PT input. - Continue regimen of Naproxen and application of Podus boot to left lower extremity with ambulation per Ortho recommendations. - Continue/encourage PT upon DC to improve mobility and independence. 3. Atrial fibrillation: - Continue outpatient Coumadin regimen to maintain therapeutic INR of between 2.0-3.0. - INR therapeutic this AM with a result of 2.20. - INR to be re-evaluated every Monday upon DC to ensure it is maintained within therapeutic range. Consulting Request: Consulting Specialty: Orthopedics Consulting Physician: Dr. Vigil Reason for Consult: recommendations for management of tendon tear Subjective Subjective: Patient continues to report intermittent left lower extremity lateral ankle/ dorsal foot pain which has improved since admission. Patient reports ambulation with PT and application of Podus boot yesterday per Ortho recommendations. DC to STR anticipated this afternoon following review of AM labs. Review of Systems Constitutional: Reports: see HPI. Neurological/Psychological: Reports: paresthesia (to bilateral forefeet ). Comments: Intermittent left lower extremity lateral ankle/dorsal foot tenderness reported. Objective Last 24 Hrs of Vital Signs/I&O Vital Signs Date Time Temp Pulse Resp B/P B/P Pulse O2 O2 Flow FiO2 Mean Ox Delivery Rate 05/17 0828 97.8 62 20 115/61 05/17 0800 Room Air 05/17 0630 97.8 62 20 115/61 92 Room Air 05/16 2248 97.6 62 18 110/56 93 Room Air 05/16 1414 97.8 70 18 106/60 95 Room Air Intake & Output 05/17 1600 05/17 0800 05/17 0000 Intake Total 120 600 Output Total Balance 120 600 Intake, Oral 120 600 Number 1 Bowel Movements Patient 99.535 kg Weight Weight Bed scale Measurement Method Physical Exam General Appearance: Alert, Oriented X3, Cooperative, No Acute Distress Skin Temp/Moisture Exam: Warm/Dry HEENT: Atraumatic, Mucous Membr. moist/pink Neck: Supple Cardiovascular: Regular Rate, Normal S1, Normal S2 Lungs: Clear to Auscultation Abdomen: Soft, No Tenderness, Obese Neurological: Decreased sensation to bilateral forefeet on exam. Extremities: Resolving erythema to left lateral ankle and dorsum of left foot observed. 2+ palpable left DP pulse with trace bilateral LE edema noted on exam. Current Medications: Current Medications Sig/Anuj Start time Last Medication Dose Route Stop Time Status Admin Acetaminophen 650 MG Q6 05/15 1200 AC 05/17 PO 0458 Atorvastatin Calcium 10 MG DAILY 05/14 09 AC 05/17 PO 0828 Bupropion HCl 150 MG DAILY 05/14 0900 AC 05/17 PO 0827 Cefazolin Sodium 1,000 MG IQ8 05/14 1600 AC 05/17 IV 0739 Diltiazem HCl 180 MG DAILY 05/15 0900 AC 05/17 PO 0828 Furosemide 80 MG DAILY 05/14 0900 AC 05/17 PO 0828 Gabapentin 1,200 MG AT BEDTIME 05/14 2100 AC 05/16 PO 2124 Gabapentin 600 MG DAILY 05/14 0900 AC 05/17 PO 0827 Isosorbide 60 MG DAILY 05/14 1500 AC 05/17 Mononitrate PO 0828 Lactobacillus 1 CAP BID 05/17 1011 AC Acidophilus PO Magnesium Hydroxide 30 ML QAM PRN 05/16 0915 AC PO Melatonin 5 MG QPM 05/14 2100 AC 05/16 PO 2125 Naproxen 250 MG BID 05/15 2100 AC 05/17 PO 0828 Omeprazole 40 MG DAILY AC 05/15 1530 AC 05/17 PO 0459 Oxycodone HCl 7.5 MG TIDPRN PRN 05/14 1700 AC 05/15 PO 1612 Patient Medication 1 ED ONE ONE 05/16 1145 DC 05/16 Teaching ED 05/16 1146 1200 Polyethylene Glycol 17 GM DAILY NEEDED PRN 05/15 0830 AC 05/15 PO 1158 Potassium Chloride 20 MEQ DAILY 05/14 09 AC 05/17 PO 0828 Senna 187 MG BID PRN 05/15 08 AC 05/15 PO 1159 Senna 187 MG AT BEDTIME 05/14 2100 AC 05/16 PO 212 Warfarin Sodium 6 MG QPM 05/14 2100 AC 05/16 PO 212 Last 24 Hrs of Labs/Mics: Laboratory Tests 05/17/18 0810: Anion Gap 9, Estimated GFR > 60, BUN/Creatinine Ratio 38.6 H, PT 24.2 H, INR 2.20 H, CBC w Diff NO MAN DIFF REQ, RBC 4.45, MCV 88.8, MCH 29.8, MCHC 33.5, RDW 17.2 H, MPV 9.8, Gran % 67.1, Lymphocytes % 15.8 L, Monocytes % 9.7 H, Eosinophils % 6.8 H, Basophils % 0.6, Absolute Granulocytes 2.9, Absolute Lymphocytes 0.7 L, Absolute Monocytes 0.4, Absolute Eosinophils 0.3, Absolute Basophils 0 Jono CISNEROS,[facility] 05/17/18 1034: Assessment/Plan Medical Plan: Patient seen and examined, did complain of feeling somewhat nauseous this morning. Denies any abdominal pain. Denies any vomiting. Denies any diarrhea. She did have a bowel movement yesterday. Her blood work looks excellent. Her vital signs are stable. The left lower extremity swelling and erythema is improved quite a bit. Patient has a bed available at rehab today and she is medically stable for discharge to rehab. She should follow-up with Dr. Zuniga in 1-2 weeks. Will resume all her home meds.
--- NOTE | 2018-05-17 10:39 | Patient Discharge Instructions ---
Discharge Instructions General Discharge Information You were seen/treated for: Cellulits of the left lower extremity/Tendonitis of the left ankle. Special Instructions: Please follow-up with Dr. Zuniga (Orthopedics) in 1 to 2 weeks. Diet Recommended Diet: Heart Healthy Activity Full Activity/No Limits: No Activity Limited to: Weight bear as tolerated (with assist) Other activity limits: Patient is directed to wear Podus boot to left lower extremity when ambulating. Acute Coronary Syndrome Inclusion Criteria At DC or during hospital stay patient has or had the following: ACS DIAGNOSIS No Discharge Core Measures Meds if any: Prescribed or Continued at Discharge Meds if any: NOT Prescribed or Continued at Discharge Congestive Heart Failure Inclusion Criteria At DC or during hospital stay patient has or had the following: CHF DIAGNOSIS No Discharge Core Measures Meds if any: Prescribed or Continued at Discharge Meds if any: NOT Prescribed or Continued at Discharge Cerebrovascular accident Inclusion Criteria At DC or during hospital stay patient has or had the following: CVA/TIA Diagnosis No Discharge Core Measures Meds if any: Prescribed or Continued at Discharge Meds if any: NOT Prescribed or Continued at Discharge Venous thromboembolism Inclusion Criteria VTE Diagnosis No VTE Type NONE VTE Confirmed by (Test) NONE Discharge Core Measures - Per Current guidelines, there needs to be overlap - treatment for the first 5 days of Warfarin therapy. - If discharged on Warfarin prior to 5 days of - overlap therapy, the patient will need to be - assessed for post discharge needs including - *Post discharge parental anticoagulation - *Warfarin and/or parental anticoagulation education - *Follow up date to check INR post discharge At least 5 days overlap therapy as Inpatient No Meds if any: Prescribed or Continued at Discharge Warfarin Yes Note: Overlap Therapy is Warfarin and Anticoagulant Meds if any: NOT Prescribed or Continued at Discharge
[2018-05-17 13:21] VITALS: BP 115/61
[2018-05-17 15:12] VITALS: BP 112/58
== END 2018-05-17 15:12 | DRG 603 ==
LOC: DELPENDDIS → ERH 23:18 → 2NB 05-14 11:09 → ERHI 05-14 11:09 → ENRESERV 05-14 11:57 → ENTRNSPT 05-14 12:42 → EDTRNSPTSTS 05-14 12:58 → EDTRNSPT 05-14 12:58 → 2NB 05-14 13:12 → CMPTRNSPT 05-14 13:20 → ENPENDDIS 05-16 13:28 → 2NB 05-17 15:12
PROVIDERS: Nurse Practitioner Adult Health; Physician Assistant
DX: L03.116 Cellulitis of left lower limb (principal); E78.5 Hyperlipidemia, unspecified; I48.2 Chronic atrial fibrillation; I11.0 Hypertensive heart disease with heart failure; I50.9 Heart failure, unspecified; R60.9 Edema, unspecified; Z79.01 Long term (current) use of anticoagulants; Z99.3 Dependence on wheelchair; Z88.8 Allergy status to other drugs, medicaments and biological substances; Z91.040 Latex allergy status; I25.2 Old myocardial infarction; G89.29 Other chronic pain; M54.9 Dorsalgia, unspecified; Z66 Do not resuscitate; M77.52 Other enthesopathy of left foot and ankle; K59.00 Constipation, unspecified
CPT/HCPCS: 2NBSP; 75618; 36415; 36592; 73590-LT; 81001; 82436; 87040; 87086; 93005; 93010; 96374; 97110-GO; 97116-GO; 97161-GP; 97166-GO; 97530-GO; J0690; J3370; J7040; Q2036